=== PATIENT | female | born 1995 | race Two or more races ===

== ENCOUNTER → 2022-10-10 | Outpatient (CLI) | payer OTHER ==
[~2022-10-10] MED LIST: PROHANCE 279.3MG/ML 5ML VIAL ONE
== END ==
LOC: M PLAIMG 09:30
PROVIDERS: ATTEND Physician Assistant
DX: H53.9 Unspecified visual disturbance (principal)
CPT/HCPCS: 70553; A9576

== ENCOUNTER → 2023-01-29 | Outpatient (REF) | LOC: M PLAIMG 11:45 | PROVIDERS: ATTEND Internal Medicine | DX: R52 Pain, unspecified (principal) ==